=== PATIENT | female | born 1960 | race Caucasian/White ===

== ENCOUNTER 2018-05-13 20:17 | Emergency (ER) | payer OTHER, SELFPAY ==
[2018-05-13 20:19] VITALS: BP 147/100; PULSE 102; RESP 18; TEMP 36.7; O2SAT 94; BMI 34.7
--- NOTE | 2018-05-13 20:35 | ED.NAVMDI ---
HPI - Nausea/Vomiting/Diarrhea <NELI Yun Last Filed: 05/13/18 22:31> General Chief complaint: Nausea/Vomiting/Diarrhea Stated complaint: VOMITING Time Seen by Provider: 05/13/18 20:34 Source: patient Mode of arrival: ambulatory Limitations: no limitations History of Present Illness HPI Narrative: this 57-year-old female comes in due to pressure and burning sensation low in her throat and somewhat in her upper chest. She states that this started while she was eating ribs and stuffing this evening, and she had sudden onset of pressure and liquid in her throat. She states that she has had this periodically over the last 2 years, always comes on when she is eating. She has not been able to determine whether certain foods seem to cause it. She states that usually the pressure builds up and she will be able to start belching and relieve it. She occasionally has had worse pressure and start to get nauseous and vomit. She states that she was unable to keep belching as usual and had that same sensation. She vomited once and states the intense burning sensation is better, still has some pressure but states largely resolved and probably would not have come in without she feels now. She states that she does not feel short of breath. She does not feel like she aspirated and has not been coughing. She does not feel nauseated any longer. She does not have abdominal pain and has not had any bowel habit changes or fever today. She states that she does get heartburn and typically uses Tums a couple of times weekly, sometimes takes it for this as well. She has never had any exertional symptoms or discomfort at times other than in the setting of eating. She states that she had upper GI a couple of years ago for these symptoms which was normal, also had normal cardiac workup. Related Data Allergies Allergy/AdvReac Type Severity Reaction Status Date / Time tramadol Allergy Verified 05/13/18 21:42 Review of Systems <NELI Yun Last Filed: 05/13/18 22:31> Review of Systems All systems reviewed & are unremarkable except as noted in HPI and below PFSH <NELI Yun Last Filed: 05/13/18 22:31> Comment: occ ETOH Exam <NELI Yun Last Filed: 05/13/18 22:31> Narrative Exam Narrative: GENERAL APPEARANCE: Patient sitting comfortably, in no distress. HEENT: PERRL, EOMI, no scleral icterus, normal oropharynx NECK: Supple, no masses, trachea midline with normal swallow LUNGS: Clear to auscultation bilaterally. CHEST: No tenderness to palpation HEART: Rate and rhythm regular, normal S1 and S2, no S3 or S4. ABDOMEN: Soft, nontender, nondistended, bowel sounds present x 4 quadrants EXTREMITIES: No edema DERMATOLOGIC: No jaundice or exanthem NEUROLOGIC: Alert and oriented with normal speech and coordination Initial Vital Signs Initial Vital Signs: Vital Signs Temperature 98.1 F 05/13/18 20:19 Pulse Rate 102 H 05/13/18 20:19 Respiratory Rate 18 05/13/18 20:19 Blood Pressure 147/100 H 05/13/18 20:19 Pulse Oximetry 94 05/13/18 20:19 <Nirav Harding DO - Last Filed: 05/13/18 23:15> Initial Vital Signs Initial Vital Signs: Vital Signs Temperature 98.1 F 05/13/18 20:19 Pulse Rate 102 H 05/13/18 20:19 Respiratory Rate 18 05/13/18 20:19 Blood Pressure 147/100 H 05/13/18 20:19 Pulse Oximetry 94 05/13/18 20:19 Course <Aurora Medina PA-C - Last Filed: 05/13/18 22:31> Additional Information: Patient had some recurrent vomiting after trying to swallow medications. She was given a dose of SL Zofran with improvement, then given GI cocktail again which helped briefly, but was still experiencing some discomfort and pressure especially when supine. IV Protonix and sucralfate given. She states that she is starting to feel better and is lying down comfortably. we are going to monitor patient to determine whether continued improvement or any further workup needed. Patient signed out to Dr. Harding at 2225 Orders Ordered: ED Orders 05/13/18 20:48 EKG-12 Lead Stat Discontinued Medications Al Hydrox/Mg Hydrox/Simethicone 20 ml/ Lidocaine HCl 15 ml 0 ml PO NOW ONE Stop: 05/13/18 20:49 Last Admin: 05/13/18 20:54 Dose: 35 ml Sodium Chloride (Normal Saline 0.9%) 500 mls @ 1,000 mls/hr IV BOLUS STA Stop: 05/13/18 22:13 Last Admin: 05/13/18 22:04 Dose: 1,000 mls/hr Ondansetron HCl (Zofran Odt) 4 mg PO NOW ONE Stop: 05/13/18 21:02 Last Admin: 05/13/18 21:02 Dose: 4 mg Pantoprazole Sodium (Protonix) 40 mg IV NOW ONE Stop: 05/13/18 21:45 Last Admin: 05/13/18 22:04 Dose: 40 mg Ranitidine HCl (Zantac) 300 mg PO NOW ONE Stop: 05/13/18 20:49 Last Admin: 05/13/18 20:52 Dose: 300 mg Sucralfate (Carafate) 1 gm PO NOW ONE Stop: 05/14/18 21:46 Sucralfate (Carafate) 1 gm PO NOW ONE Stop: 05/14/18 22:02 Sucralfate (Carafate) 1 gm PO NOW ONE Stop: 05/13/18 22:02 Last Admin: 05/13/18 22:07 Dose: 1 gm Vital Signs - 8 hr 05/13/18 20:19 Temperature 98.1 F Pulse Rate 102 H Respiratory Rate 18 Blood Pressure 147/100 H Pulse Oximetry 94 <Nirav Harding DO - Last Filed: 05/13/18 23:15> Orders Ordered: ED Orders 05/13/18 20:48 EKG-12 Lead Stat Discontinued Medications Al Hydrox/Mg Hydrox/Simethicone 20 ml/ Lidocaine HCl 15 ml 0 ml PO NOW ONE Stop: 05/13/18 20:49 Last Admin: 05/13/18 20:54 Dose: 35 ml Sodium Chloride (Normal Saline 0.9%) 500 mls @ 1,000 mls/hr IV BOLUS STA Stop: 05/13/18 22:13 Last Admin: 05/13/18 22:04 Dose: 1,000 mls/hr Ondansetron HCl (Zofran Odt) 4 mg PO NOW ONE Stop: 05/13/18 21:02 Last Admin: 05/13/18 21:02 Dose: 4 mg Pantoprazole Sodium (Protonix) 40 mg IV NOW ONE Stop: 05/13/18 21:45 Last Admin: 05/13/18 22:04 Dose: 40 mg Ranitidine HCl (Zantac) 300 mg PO NOW ONE Stop: 05/13/18 20:49 Last Admin: 05/13/18 20:52 Dose: 300 mg Sucralfate (Carafate) 1 gm PO NOW ONE Stop: 05/14/18 21:46 Sucralfate (Carafate) 1 gm PO NOW ONE Stop: 05/14/18 22:02 Sucralfate (Carafate) 1 gm PO NOW ONE Stop: 05/13/18 22:02 Last Admin: 05/13/18 22:07 Dose: 1 gm Vital Signs - 8 hr 05/13/18 20:19 Temperature 98.1 F Pulse Rate 102 H Respiratory Rate 18 Blood Pressure 147/100 H Pulse Oximetry 94 MDM - Nausea/Vomiting/Diarrhea <NELI Yun Last Filed: 05/13/18 22:31> ECG Data Attestation: I personally reviewed and interpreted this ECG as follows: ( normal sinus rhythm with rate 82, 1st degree AV block, normal axis) ED Cosign/Signout <Aurora Medina PA-C - Last Filed: 05/13/18 22:31> Sign Out Provider Sign Out Attestation: See Course section. findings reviewed with Dr. Harding including patient's history of multiple episodes of the symptoms always in the setting of eating, though more persistent this evening. She is feeling better after Protonix and Carafate. He will reassess patient and determine whether any further w/u needed <Nirav Harding DO - Last Filed: 05/13/18 23:15> Cosign ED Attending Cosignature Attestation: I was available for consultation during this patient's emergency department encounter
[2018-05-13] MEDS: MAG HYDROX/ALUMINUM/SIMETH SUS 20 ML, LIDOCAINE VISCOUS 2% 15 ML PO (20:54)
[2018-05-13] MEDS: ONDANSETRON 4 MG ODT PO (21:02)
--- NOTE | 2018-05-13 21:03 | PC.NURSE ---
upon administration of GI cocktail, pt vomited clear liquid. Pt states she is still feeling a little nauseous. administered Zofran per order.
--- NOTE | 2018-05-13 21:29 | PC.NURSE ---
Reassessed pt, She is feeling better no longer nauseas. Per Provider pt finished her GI cocktail. Pt denies nausea. Will give her a few minutes to see if cocktail helps pain.
--- NOTE | 2018-05-13 21:37 | PC.NURSE ---
reassessed Pt after GI cocktail. pt states it numbed the burning slightly but she is still burping. She thinks it did help her a little, just didn't last long. Provider notified. No new orders at this time.
[2018-05-13] MEDS: SODIUM CHLORIDE 0.9% 500 ML 1000 ML IV (22:04)
[2018-05-13] MEDS: PANTOPRAZOLE 40 MG VIAL IV (22:04)
[2018-05-13] MEDS: SUCRALFATE 1 GM TABLET PO (22:07)
[2018-05-13 23:40] VITALS: BP 112/94; PULSE 82; O2SAT 98
== END 2018-05-13 23:41 | disposition home or self-care (01) ==
PROVIDERS: Emergency Provider Emergency Medicine; Family Provider Family Medicine; PCP Family Medicine
DX: K22.4 Dyskinesia of esophagus (principal); R07.89 Other chest pain
CPT/HCPCS: 93005; 93010; 96361; 96374; 99283; 99284; C9113

== ENCOUNTER → 2018-11-03 16:30 | Outpatient (CLI) | payer OTHER, SELFPAY ==
--- NOTE | 2018-11-03 | DI.MG.S_ITS ---
BILATERAL DIGITAL SCREENING MAMMOGRAM 3D/2D WITH CAD: 11/03/2018 CLINICAL: Routine screening. Family history of breast cancer. Comparison is made to exams dated: 10/03/2017 mammogram, 09/09/2016 mammogram - [facility], and 07/14/2014 mammogram - [facility]. The tissue of both breasts is heterogeneously dense. This may lower the sensitivity of mammography. Current study was also evaluated with a Computer Aided Detection (CAD) system. There is a benign mass in the right breast. There also are benign calcifications in the right breast. Additionally, there are benign calcifications and masses in the left breast. No significant masses, calcifications, or other findings are seen in either breast. There has been no significant interval change. IMPRESSION: There is no mammographic evidence of malignancy. A 1 year screening mammogram is recommended. This exam was interpreted at Station ID: [id number]. NOTE: For mammograms, a report in lay terms will be sent to the patient. Approximately 15% of breast malignancies will not be visualized mammographically. In the management of a palpable breast mass, a negative mammogram must not discourage biopsy of a clinically suspicious lesion. Electronically Signed By: Ger zarate/jeanna:11/04/2018 09:34:21 copy to: Barbara Wiggins letter sent: Normal Exam ACR BI-RADS Category 2: Benign Finding(s) 3342F
== END ==
PROVIDERS: Family Provider Family Medicine; PCP Family Medicine; Visit Provider Family Medicine
DX: Z12.31 Encounter for screening mammogram for malignant neoplasm of breast (principal); Z80.3 Family history of malignant neoplasm of breast
CPT/HCPCS: 77063; 77067

== ENCOUNTER 2024-02-21 20:11 | Emergency (ER) | payer OTHER, SELFPAY ==
[2024-02-21 20:17] VITALS: BP 157/88; PULSE 98; RESP 18; TEMP 36.6; O2SAT 97; BMI 33.9
[2024-02-21 20:50] LABS: Add Manual Diff / Slide Review NO; Basophils Absolute Auto 100 /uL (0-100); Basophils Percent Auto 0.5 % (0-2); Eosinophils Absolute Auto 200 /uL (0-450); Eosinophils Percent Auto 1.6 % (2-4); Hematocrit 41.9 % (36-46); Lymphocytes Absolute Auto 2200 /uL (1100-4500); Lymphocytes Percent Auto 17.7 % (25-40); Mean Corpuscular HGB Conc 33.5 % (30-36); Mean Corpuscular Hemoglobin 30.3 PG (26-34); Mean Corpuscular Volume 90.6 fL (80-100); Monocytes Absolute Auto 700 /uL (0-900); Monocytes Percent Auto 5.5 % (3-14); Neutrophils Absolute Auto 9400 /uL (1500-7000); Neutrophils Percent Auto 74.7 % (50-75); Platelet Count 334 X10^3/uL (150-400); Red Blood Cell Count 4.63 X10^6/uL (4.0-5.2); Red Cell Distribution Width 13.3 % (11.6-14.8); White Blood Cell Count 12.6 X10^3/uL (4.5-11.0)
--- NOTE | 2024-02-21 20:50 | EKG_ITS ---
[address] [address] [address] [address] Test Date: 2024-02-21 Pat Name: Xiomy Dixon Department: Room: Gender: Female Eviction Specialist: LOKI : 1960 Requested By: Order Number: [id number] Reading MD: Gilbert Roman Measurements Intervals [place] Rate: 99 P: 54 [place]: 200 QRS: 9 QRSD: 92 T: 61 QT: 346 QTc: 444 Interpretive Statements Normal sinus rhythm Electronically Signed On 02-25-2024 19:46:55 PDT by Gilbert Roman
--- NOTE | 2024-02-21 20:51 | PC.NURSE ---
pt states it feels like the pain starts in the mid back and wraps around the front just under the lower rib cage it is described as a squeezing like a muscle spasm, the previous episode was shorter than this episode, pain increased when pt attempted to lay down, pain has now resolved, SOB occurs when the pain does and is because it hurts when she tries to inhale. pt recently had a CT that had something regarding the GB but pt does not remember what
--- NOTE | 2024-02-21 20:55 | ED.GENADULT ---
HPI - General Adult General Chief complaint: Shortness of Breath/Dyspnea Stated complaint: Back Pain, Cramps, SoB Time Seen by Provider: 02/21/24 20:38 Source: patient Mode of arrival: Ambulatory History of Present Illness HPI narrative: 63-year-old female who is here for evaluation an episode that occurred earlier today where she had pain in the middle of her back. She felt like he was cramping sensation. It was hurting so much that it caused her to have shortness of breath. Pain also in the upper portion of the abdomen. It was after she ate today. It occurred for several hours and then resolved. She was currently asymptomatic. She would similar symptoms that occurred a couple days ago. Denies urinary symptoms. No change in bowel habits. So vomiting. No fevers. No chest pain. Related Data Previous Rx's Medication Instructions Recorded ranitidine HCl 150 mg capsule 150 mg PO BID #60 caps 05/13/18 sucralfate 100 mg/mL oral 10 ml PO QID #420 mL 05/13/18 suspension Allergies Allergy/AdvReac Type Severity Reaction Status Date / Time tramadol Allergy Verified 05/13/18 21:42 Review of Systems Review of Systems ROS Unobtainable: All systems reviewed & are unremarkable except as noted in HPI and below Patient History Medical History Loose stools Chronic neck and back pain History of spinal fracture Mild acid reflux Social History Smoking Status: Former smoker Smoking Status: Former smoker alcohol intake frequency: holidays/special occasions only Substance Use Type: does not use Exam Initial Vital Signs Initial Vital Signs: Vital Signs Temperature 97.8 F 02/21/24 20:17 Pulse Rate 98 H 02/21/24 20:17 Respiratory Rate 18 02/21/24 20:17 Blood Pressure 157/88 H 02/21/24 20:17 Pulse Oximetry 97 02/21/24 20:17 Oxygen Delivery Method Room Air 02/21/24 20:17 Const General: cooperative, comfortable and No ill appearing HENMT Head: normal to inspection and normocephalic Resp Effort & Inspection: normal respiratory effort Auscultation: clear to auscultation bilaterally Cardio Rate: regular rate Rhythm: regular rhythm GI Inspection: normal to inspection and non-distended Palpation: soft, No firm and No tender Back/Spine/Pelvis Back: No CVA tenderness Skin General: no rashes or lesions noted Neuro General: patient alert, patient awake and moves all extremities Extrem General: capillary refill normal Course Orders Ordered: ED Orders 02/21/24 20:38 Complete Blood Count AUTO DIFF Stat Comprehensive Metabolic Panel Stat Lipase Stat 02/21/24 20:44 EKG-12 Lead Stat Vital Signs Vital signs: Vital Signs - 8 hr 02/21/24 20:17 02/21/24 22:04 Temperature 97.8 F Pulse Rate 98 H 84 Respiratory Rate 18 18 Blood Pressure 157/88 H 146/80 H Pulse Oximetry 97 98 Oxygen Delivery Method Room Air Room Air Medical Decision Making Lab Data Lab results reviewed: Yes I reviewed the patient's lab results. 02/21/24 20:38 02/21/24 20:38 Labs: Lab Results 02/21/24 Range/Units 20:38 WBC 12.6 H (4.5-11.0) X10^3/uL RBC 4.63 (4.0-5.2) X10^6/uL Hgb 14.0 (12.0-16.0) g/dL Hct 41.9 (36-46) % MCV 90.6 (80-100) fL MCH 30.3 (26-34) PG MCHC 33.5 (30-36) % RDW 13.3 (11.6-14.8) % Plt Count 334 (150-400) X10^3/uL Neut % (Auto) 74.7 (50-75) % Lymph % (Auto) 17.7 L (25-40) % [place] % (Auto) 5.5 (3-14) % Eos % (Auto) 1.6 L (2-4) % Baso % (Auto) 0.5 (0-2) % Neut # (Auto) 9400 H (6568-7218) /uL Lymph # (Auto) 2200 (8977-1174) /uL [place] # (Auto) 700 (0-900) /uL Eos # (Auto) 200 (0-450) /uL Baso # (Auto) 100 (0-100) /uL Sodium 137 (137-145) mmol/L Potassium 4.3 (3.4-5.1) mmol/L Chloride 103 (98-107) mmol/L Carbon Dioxide 27 (22-32) mmol/L BUN 24 H (7-17) mg/dL Creatinine 0.66 (0.52-1.04) mg/dL Estimated GFR > 60 (>60) mL/min BUN/Creatinine Ratio 36.4 H (6-22) Glucose 107 (80-110) mg/dL Calcium 9.2 (8.4-10.2) mg/dL Total Bilirubin 0.7 (0.2-1.3) mg/dL AST 72 H (14-36) IU/L ALT 31 (<35) IU/L Alkaline Phosphatase 112 (38-126) U/L Total Protein 7.8 (6.3-8.2) g/dL Albumin 4.1 (3.5-5.0) g/dL Globulin 3.7 (1.7-4.1) g/dL Albumin/Globulin Ratio 1.1 (1.0-2.8) Lipase 162 (23-300) U/L ECG Data Attestation: I personally reviewed and interpreted this ECG as follows: Interpretation: Sinus rhythm Ventricular rate 99 Normal axis Normal QRS Normal QTC No ST T wave changes MDM Narrative Medical decision making narrative: Patient is now asymptomatic. Lipase is normal. EKG is unremarkable. Slight elevation in her AST but the rest of her liver function tests are unremarkable. No skin changes concerning for zoster. I have low suspicion that this is a intrathoracic issue such as pneumonia or ACS. I have a suspicion that this is a gallbladder related issue given her presenting symptoms. She was a follow-up appointment with her primary doctor scheduled for Thursday of this week and have recommended that she talk with her primary doctor about the indications for an ultrasound. She was given return precautions. She expressed understanding and agreement with plan. Discharge Plan Departure Patient Disposition: Home Clinical Impression: Abdominal pain Instructions: Gallstones, DI for Biliary Colic Activity Restrictions/Additional Instructions: I recommend that on Thursday when you see your primary doctor you discuss the indications for an ultrasound to further evaluate your gallbladder. I also recommend a bland diet avoiding foods that are high in fats and oils. Return to the emergency department for new or worsening symptoms. Prescriptions: No Action sucralfate 100 mg/mL suspension 10 ml PO QID Qty: 420 0RF Rx Instructions: swish in mouth and swallow; use after food/drink ranitidine HCl 150 mg capsule 150 mg PO BID Qty: 60 0RF Referrals: Nathaniel Garcia DO [Primary Care Provider] - Stand Alone Forms: Patient Portal/API
[2024-02-21 20:59] LABS: Alanine Aminotransferase 31 IU/L (<35); Albumin 4.1 g/dL (3.5-5.0); Albumin Globulin Ratio 1.1 (1.0-2.8); Alkaline Phosphatase 112 U/L (38-126); Aspartate Aminotransferase 72 IU/L (14-36); BUN Creatinine Ratio 36.4 (6-22); Bilirubin Total 0.7 mg/dL (0.2-1.3); Blood Urea Nitrogen 24 mg/dL (7-17); Calcium 9.2 mg/dL (8.4-10.2); Carbon Dioxide 27 mmol/L (22-32); Chloride 103 mmol/L (98-107); Estimated Glomerular Filt Rate > 60 mL/min (>60); Globulin 3.7 g/dL (1.7-4.1); Glucose 107 mg/dL (80-110); Potassium 4.3 mmol/L (3.4-5.1); Sodium 137 mmol/L (137-145); Total Protein 7.8 g/dL (6.3-8.2)
[2024-02-21 21:00] LABS: HEMOLYSIS 97 (0-50)
[2024-02-21 21:18] LABS: Lipase 162 U/L (23-300)
[2024-02-21 22:04] VITALS: BP 146/80; PULSE 84; RESP 18; O2SAT 98
== END 2024-02-21 22:04 | disposition home or self-care (01) ==
PROVIDERS: Emergency Provider Emergency Medicine; Family Provider Family Medicine; PCP Family Medicine
DX: R10.9 Unspecified abdominal pain (principal); R06.02 Shortness of breath
CPT/HCPCS: 36415; 80053; 83690; 85025; 93005; 99283; 99284

== ENCOUNTER 2024-03-15 10:48 | Emergency (ER) | payer OTHER, SELFPAY ==
[2024-03-15] VITALS (9 sets, daily range): BP systolic 119–135; BP diastolic 75–89; PULSE 83–98; RESP 15–29; TEMP 37.1; O2SAT 93–97; BMI 32.3
--- NOTE | 2024-03-15 11:25 | EKG_ITS ---
[facility] [address] [address] Test Date: 2024-03-15 Pat Name: Xiomy Dixon Department: [facility] Room: Gender: Female Glass Bead Maker: ANGELLA : 1960 Requested By: Order Number: [id number] Reading MD: Erlin Petit MD Measurements Intervals [place] Rate: 87 P: 58 [place]: 208 QRS: 10 QRSD: 92 T: 39 QT: 352 QTc: 423 Interpretive Statements Normal sinus rhythm Electronically Signed On 03-15-2024 12:05:42 PDT by Erlin Petit MD
--- NOTE | 2024-03-15 11:25 | DI.CT.S_ITS ---
PROCEDURE: CT HEAD/BRAIN WO CON INDICATIONS: Positive BE-FAST, Stroke symptoms TECHNIQUE: Noncontrast 4.5 mm thick angled axial sections acquired from the foramen magnum to the vertex, with coronal and sagittal reformats. For radiation dose reduction, the following was used: automated exposure control, adjustment of mA and/or kV according to patient size. COMPARISON: None. FINDINGS: Image quality: Diagnostic. CSF spaces: Basal cisterns are patent. No extra-axial fluid collections. Ventricles are normal in size and shape. Brain: No midline shift. No intracranial masses or hemorrhage. Garcia-white matter interface is normal. Skull and face: Calvarium and visualized facial bones are intact, without suspicious lesions. Sinuses: Visualized sinuses and mastoids are clear. IMPRESSION: No acute intracranial pathology. Dictated by: Zainab Gutierrez MD, PhD on 03/15/2024 at 12:17 Approved by: Zainab Gutierrez MD, PhD on 03/15/2024 at 12:19
--- NOTE | 2024-03-15 11:25 | DI.RAD.S_ITS ---
PROCEDURE: XR CHEST 1V INDICATIONS: Possible stroke TECHNIQUE: One view of the chest was acquired. COMPARISON: None. FINDINGS: Surgical changes and devices: None. Lungs and pleura: Lungs are clear. No pleural effusions or pneumothorax. Mediastinum: Mediastinal contours appear normal. Heart size is normal. Bones and chest wall: No suspicious bony lesions. Overlying soft tissues appear unremarkable. IMPRESSION: No acute pulmonary process. Dictated by: Tamara Simeon M.D. on 03/15/2024 at 11:48 Approved by: Tamara Simeon M.D. on 03/15/2024 at 11:49
--- NOTE | 2024-03-15 11:28 | DI.CT.S_ITS ---
PROCEDURE: CT ANGIO HEAD AND NECK INDICATIONS: r/o stroke, vision changes x one week, worse in the last TECHNIQUE: After the administration of intravenous contrast, 1 mm thick sections acquired from the aortic arch through the [place] of [place]. 3-dimensional bopcsdb-uyvilyfrf-eomyjtgdov (MIP) and/or volume rendering reformats were acquired of the central intracranial vasculature and neck separately. For radiation dose reduction, the following was used: automated exposure control, adjustment of mA and/or kV according to patient size. COMPARISON: Located Within [facility], CT, CT HEAD/BRAIN WO CON, 03/15/2024, 11:45. CT head March 15, 2024. . FINDINGS: Image quality: Diagnostic. . HEAD CT ANGIOGRAPHY: Anterior circulation: Intracranial internal carotid arteries are normal in size and flow. The flow within the paired anterior cerebral arteries is normal and symmetric. The flow within the middle cerebral arteries is normal and symmetric. The anterior communicating artery is seen. No aneurysms are seen. Posterior circulation: Visualized portions of the vertebral arteries demonstrate normal caliber, and join to form a normal appearing basilar artery. Flow within the posterior cerebral arteries is normal and symmetric. Left posterior cerebral artery has a origin. No aneurysms are seen. NECK CT ANGIOGRAPHY: Carotid system: The great vessels demonstrate a conventional anatomy as they arise from the aortic arch. The origins of the common carotid arteries appear patent. The common carotid arteries demonstrate normal caliber and courses. The bifurcation regions are both widely patent. The internal carotid arteries demonstrate normal calibers and courses. Posterior circulation: The origins of the vertebral arteries both appear widely patent. The more superior extracranial portions of both vertebral arteries also demonstrate normal courses and calibers. They join to form a normal appearing basilar artery. Soft tissues: Visualized neck soft tissues demonstrate no suspicious abnormalities. Thyroid nodules with largest nodule in the right lobe measuring 2.0 centimeters in maximum diameter. Bones: No suspicious bony lesions. Visualized cervical spine appears normally aligned. Spine degenerative disc disease and facet arthropathy. IMPRESSION: No large vessel occlusion, significant vascular stenosis, vascular dissection or aneurysm. 2.0 centimeter right thyroid nodule. Recommend nonemergent thyroid ultrasound for additional evaluation. Any quantitative measurements of stenosis were performed using NASCET criteria. Dictated by: Zainab Gutierrez MD, PhD on 03/15/2024 at 12:07 Approved by: Zainab Gutierrez MD, PhD on 03/15/2024 at 12:13
[2024-03-15 11:40] LABS: Ur Creatinine Normal (Normal); Ur Specific Gravity Normal (Normal); Urine pH Normal (Normal)
[2024-03-15 11:43] LABS: Urine Cocaine Negative (Negative); Urine THC Negative (Negative)
[2024-03-15 11:44] LABS: Urine Amphetamines Negative (Negative); Urine Barbiturates Negative (Negative); Urine Benzodiazepines Negative (Negative); Urine MDMA Negative (Negative); Urine Methadone Negative (Negative); Urine Methamphetamines Negative (Negative); Urine Opiates Negative (Negative); Urine Oxycodone Negative (Negative); Urine Phencyclidine Negative (Negative); Urine Tricyclic Antidepressant Negative (Negative)
[2024-03-15 11:57] LABS: Add Manual Diff / Slide Review NO; Basophils Absolute Auto 0 /uL (0-100); Basophils Percent Auto 0.5 % (0-2); Eosinophils Absolute Auto 100 /uL (0-450); Eosinophils Percent Auto 1.2 % (2-4); Hemoglobin 13.3 g/dL (12.0-16.0); Lymphocytes Absolute Auto 2000 /uL (1100-4500); Lymphocytes Percent Auto 21.4 % (25-40); Mean Corpuscular Hemoglobin 30.4 PG (26-34); Mean Corpuscular Volume 89.4 fL (80-100); Monocytes Absolute Auto 800 /uL (0-900); Monocytes Percent Auto 8.2 % (3-14); Neutrophils Absolute Auto 6400 /uL (1500-7000); Neutrophils Percent Auto 68.7 % (50-75); Platelet Count 360 X10^3/uL (150-400); Red Blood Cell Count 4.36 X10^6/uL (4.0-5.2); Red Cell Distribution Width 13.9 % (11.6-14.8); White Blood Cell Count 9.4 X10^3/uL (4.5-11.0)
--- NOTE | 2024-03-15 12:02 | ED_ITS ---
HPI - Eye Problem General Chief complaint: Eye Problems Stated complaint: vision problems Time Seen by Provider: 03/15/24 12:01 Source: patient Mode of arrival: Family Vehicle History of Present Illness HPI Narrative: 63-year-old female with visual changes over the last few days intermittent, noticeable when she is reading, also had a work computer like screen, wearing the same prescription glasses, recent new glasses, does not feel that she is overdue for a new prescription. No associated headaches. Associated visual spots or areas that she can not see on the right or the left. Unclear if it seems to be worse on 1 eye versus the other eye, versus both eyes. No other symptoms neurologic, denies any weakness to face arm or leg, denies any numbness to face arm or leg. No trouble swallowing. Denies unsteady gait, falls or sensation that she might fall. No history of known prior strokes. No chronic blood thinner medications. She has not usually take aspirin. Related Data Previous Rx's Medication Instructions Recorded ranitidine HCl 150 mg capsule 150 mg PO BID #60 caps 05/13/18 sucralfate 100 mg/mL oral 10 ml PO QID #420 mL 05/13/18 suspension Allergies Allergy/AdvReac Type Severity Reaction Status Date / Time tramadol Allergy Verified 03/15/24 11:17 Review of Systems Review of Systems Narrative: see HPI Patient History Medical History Loose stools Chronic neck and back pain History of spinal fracture Mild acid reflux Social History Smoking Status: Former smoker Smoking Status: Former smoker tobacco type: cigarettes alcohol intake frequency: holidays/special occasions only Substance Use Type: does not use Exam Narrative Exam Narrative: GENERAL: Well-developed patient, in mild distress. HEAD: Atraumatic. Normocephalic. EYES: Pupils equal round and reactive. Extraocular motions intact. No scleral icterus. No injection or drainage. ENT: Nose without bleeding, purulent drainage. Throat without erythema, tonsillar hypertrophy or exudate. Airway patent. NECK: Trachea midline. Non tender CARDIOVASCULAR: Regular rate and rhythm without murmurs, gallops, or rubs. RESPIRATORY: Clear to auscultation. Breath sounds equal bilaterally. No wheezes, rales, or rhonchi. GASTROINTESTINAL: Abdomen soft, non-tender, nondistended. EXTREMITIES: No edema or joint tenderness. BACK: Nontender without deformity or crepitance. No flank tenderness. NEURO: AOx3. Motor functions grossly nonfocal. No diplopia on upper/lower or lateral right/left gaze testing. SKIN: No rash or erythema of visible areas Initial Vital Signs Initial Vital Signs: Vital Signs Temperature 98.7 F 03/15/24 11:10 Pulse Rate 98 H 03/15/24 11:10 Respiratory Rate 18 03/15/24 11:10 Blood Pressure 124/86 03/15/24 11:10 Pulse Oximetry 97 03/15/24 11:10 Oxygen Delivery Method Room Air 03/15/24 11:10 Course Orders Ordered: ED Orders 03/15/24 11:22 Urine Drug Screen, Rapid Stat Urine Microscopic Stat 03/15/24 11:25 CT head/brain wo con Stat XR chest 1V Stat EKG-12 Lead Stat 03/15/24 11:28 CT angio head and neck Stat 03/15/24 11:38 Complete Blood Count AUTO DIFF Stat Comprehensive Metabolic Panel Stat Magnesium Stat PTT Partial Thromboplastin [place] Stat Prothrombin Time INR Stat Troponin & CK Cardiac Panel Stat 03/15/24 12:43 MR head/brain wo con Stat 03/15/24 13:28 Troponin I Stat Discontinued Medications Ondansetron HCl (Ondansetron 4 Mg/2 Ml Inj) 4 mg IV NOW PRN PRN Reason: Nausea And Vomiting Ondansetron HCl (Ondansetron 4 Mg Odt) 4 mg SL NOW PRN PRN Reason: Nausea And Vomiting Vital Signs Vital signs: Vital Signs - 8 hr 03/15/24 12:30 03/15/24 12:31 03/15/24 12:31 Pulse Rate 85 86 Respiratory Rate 21 20 Blood Pressure 119/83 Pulse Oximetry 93 95 03/15/24 13:00 03/15/24 13:00 Pulse Rate 86 Respiratory Rate 22 Blood Pressure 135/89 Pulse Oximetry 95 MDM - Eye Problem Lab Data Attestation: I reviewed the patient's lab results. Lab results narrative: CBC unremarkable, BMP unremarkable, liver functions normal, UDS negative. Glucose serum 92. Urine dip negative. 03/15/24 11:38 03/15/24 11:38 Labs: Lab Results 03/15/24 03/15/24 03/15/24 Range/Units 11:22 11:38 13:28 WBC 9.4 (4.5-11.0) X10^3/uL RBC 4.36 (4.0-5.2) X10^6/uL Hgb 13.3 (12.0-16.0) g/dL Hct 39.0 (36-46) % MCV 89.4 (80-100) fL MCH 30.4 (26-34) PG MCHC 34.0 (30-36) % RDW 13.9 (11.6-14.8) % Plt Count 360 (150-400) X10^3/uL Neut % (Auto) 68.7 (50-75) % Lymph % (Auto) 21.4 L (25-40) % [place]christ % (Auto) 8.2 (3-14) % Eos % (Auto) 1.2 L (2-4) % Baso % (Auto) 0.5 (0-2) % Neut # (Auto) 6400 (1412-1091) /uL Lymph # (Auto) 2000 (6960-1873) /uL [place] # (Auto) 800 (0-900) /uL Eos # (Auto) 100 (0-450) /uL Baso # (Auto) 0 (0-100) /uL PT 13.2 H (9.4-12.5) SECONDS INR 1.2 (0.9-1.3) APTT 34 (25.1-36.5) SECONDS Sodium 135 L (137-145) mmol/L Potassium 3.7 (3.4-5.1) mmol/L Chloride 103 (98-107) mmol/L Carbon Dioxide 23 (22-32) mmol/L BUN 22 H (7-17) mg/dL Creatinine 0.79 (0.52-1.04) mg/dL Estimated GFR > 60 (>60) mL/min BUN/Creatinine Ratio 27.8 H (6-22) Glucose 92 (80-110) mg/dL Calcium 9.0 (8.4-10.2) mg/dL Magnesium 2.0 (1.6-2.3) mg/dL Total Bilirubin 0.7 (0.2-1.3) mg/dL AST 71 H (14-36) IU/L ALT 208 H (<35) IU/L Alkaline Phosphatase 114 (38-126) U/L Total Creatine Kinase 45 (30-135) U/L Troponin I < 0.012 < 0.012 (0.01-0.034) ng/mL Total Protein 7.0 (6.3-8.2) g/dL Albumin 3.8 (3.5-5.0) g/dL Globulin 3.2 (1.7-4.1) g/dL Albumin/Globulin Ratio 1.2 (1.0-2.8) Urine RBC None seen (0-5/HPF) Urine WBC 0-1/hpf (0-5/HPF) Ur Squamous Epith Cells None seen (0-5/HPF) Urine Bacteria None seen (None) Ur Culture Indicated? Cult not indicated Vol Urine Centrifuged 10ml (spun) U Opiates 300ng/mL cut Negative (Negative) Ur Oxycodone Screen Negative (Negative) Urine Methadone Screen Negative (Negative) Ur Barbiturates Screen Negative (Negative) U Tricyclic Antidepress Negative (Negative) Ur Phencyclidine Scrn Negative (Negative) Ur Amphetamines Screen Negative (Negative) U Methamphetamines Scrn Negative (Negative) Ur MDMA Scrn (Ecstasy) Negative (Negative) U Benzodiazepines Scrn Negative (Negative) Urine Cocaine Screen Negative (Negative) U Marijuana (THC) Screen Negative (Negative) Urine pH Normal (Normal) Urine Specific [place] Normal (Normal) Ur Creatinine Normal (Normal) Urine Dip Bedside Urine Glucose Negative Bedside Urine Bilirubin - Negative Bedside Urine Ketone ++ 40 Urine Specific [place] 1.015 Bedside Urine Occult Blood - Negative Bedside Urine pH 6.0 Bedside Urine Protein +/- 15 Bedside Urine Urobilinogen - Negative Bedside Urine Nitrite - Negative Bedside Urine Leukocytes - Negative Esterase Imaging Data Chest x-ray: Radiologist's Impression: [address] [address] XRay Report Signed Patient: Xiomy Dixon MR#: [id number] : 1960 Acct:[id number] Age/Sex: 63 / F Date of Service: 03/15/24 Loc: ED Accession Number: [id number] Procedure: XR chest 1V Ordering Provider: Justice Mehta MD PROCEDURE: XR CHEST 1V INDICATIONS: Possible stroke TECHNIQUE: One view of the chest was acquired. COMPARISON: None. FINDINGS: Surgical changes and devices: None. Lungs and pleura: Lungs are clear. No pleural effusions or pneumothorax. Mediastinum: Mediastinal contours appear normal. Heart size is normal. Bones and chest wall: No suspicious bony lesions. Overlying soft tissues appear unremarkable. IMPRESSION: No acute pulmonary process. Dictated by: Tamara Simeon M.D. on 03/15/2024 at 11:48 Approved by: Tamara Simeon M.D. on 03/15/2024 at 11:49 CT scan - head: Radiologist's Impression: [address] [address] [address] Scan Report Signed Patient: Xiomy Dixon MR#: [id number] : 1960 Acct:[id number] Age/Sex: 63 / F Date of Service: 03/15/24 Loc: ED Accession Number: [id number] Procedure: CT head/brain wo con Ordering Provider: Justice Mehta MD PROCEDURE: CT HEAD/BRAIN WO CON INDICATIONS: Positive BE-FAST, Stroke symptoms TECHNIQUE: Noncontrast 4.5 mm thick angled axial sections acquired from the foramen magnum to the vertex, with coronal and sagittal reformats. For radiation dose reduction, the following was used: automated exposure control, adjustment of mA and/or kV according to patient size. COMPARISON: None. FINDINGS: Image quality: Diagnostic. CSF spaces: Basal cisterns are patent. No extra-axial fluid collections. Ventricles are normal in size and shape. Brain: No midline shift. No intracranial masses or hemorrhage. Garcia-white matter interface is normal. Skull and face: Calvarium and visualized facial bones are intact, without suspicious lesions. Sinuses: Visualized sinuses and mastoids are clear. IMPRESSION: No acute intracranial pathology. Dictated by: Zainab Gutierrez MD, PhD on 03/15/2024 at 12:17 Approved by: Zainab Gutierrez MD, PhD on 03/15/2024 at 12:19 CTA - brain/neck: Radiologist's Impression: Close Head/Neck CTA (Signed) Zainab Gutierrez - 03/15/24 Chest X-Ray (Signed) Tamara Simeon - 03/15/[address] (Signed) Zainab Gutierrez - 03/15/24 Launch?Image [address] [address] [address] Scan Report Signed Patient: Xiomy Dixon MR#: [id number] : 1960 Acct:[id number] Age/Sex: 63 / F Date of Service: 03/15/24 Loc: ED Accession Number: [id number] Procedure: CT angio head and neck Ordering Provider: Justice Mehta MD PROCEDURE: CT ANGIO HEAD AND NECK INDICATIONS: r/o stroke, vision changes x one week, worse in the last TECHNIQUE: After the administration of intravenous contrast, 1 mm thick sections acquired from the aortic arch through the [place] of [place]. 3-dimensional lktqowa-rskjjjasi-djfokmdyqy (MIP) and/or volume rendering reformats were acquired of the central intracranial vasculature and neck separately. For radiation dose reduction, the following was used: automated exposure control, adjustment of mA and/or kV according to patient size. COMPARISON: [facility], CT, CT HEAD/BRAIN WO CON, 03/15/2024, 11:45. CT head March 15, 2024. . FINDINGS: Image quality: Diagnostic. . HEAD CT ANGIOGRAPHY: Anterior circulation: Intracranial internal carotid arteries are normal in size and flow. The flow within the paired anterior cerebral arteries is normal and symmetric. The flow within the middle cerebral arteries is normal and symmetric. The anterior communicating artery is seen. No aneurysms are seen. Posterior circulation: Visualized portions of the vertebral arteries demonstrate normal caliber, and join to form a normal appearing basilar artery. Flow within the posterior cerebral arteries is normal and symmetric. Left posterior cerebral artery has a origin. No aneurysms are seen. NECK CT ANGIOGRAPHY: Carotid system: The great vessels demonstrate a conventional anatomy as they arise from the aortic arch. The origins of the common carotid arteries appear patent. The common carotid arteries demonstrate normal caliber and courses. The bifurcation regions are both widely patent. The internal carotid arteries demonstrate normal calibers and courses. Posterior circulation: The origins of the vertebral arteries both appear widely patent. The more superior extracranial portions of both vertebral arteries also demonstrate normal courses and calibers. They join to form a normal appearing basilar artery. Soft tissues: Visualized neck soft tissues demonstrate no suspicious abnormalities. Thyroid nodules with largest nodule in the right lobe measuring 2.0 centimeters in maximum diameter. Bones: No suspicious bony lesions. Visualized cervical spine appears normally aligned. Spine degenerative disc disease and facet arthropathy. IMPRESSION: No large vessel occlusion, significant vascular stenosis, vascular dissection or aneurysm. 2.0 centimeter right thyroid nodule. Recommend nonemergent thyroid ultrasound for additional evaluation. Any quantitative measurements of stenosis were performed using NASCET criteria. Dictated by: Zainab Gutierrez MD, PhD on 03/15/2024 at 12:07 Approved by: Zainab Gutierrez MD, PhD on 03/15/2024 at 12:13 MRI Brain: Radiologist's Impression: [address] [address] Magnetic Resonance Report Signed Patient: Xiomy Dixon MR#: [id number] : 1960 Acct:[id number] Age/Sex: 63 / F Date of Service: 03/15/24 Loc: ED Accession Number: [id number] Procedure: MR head/brain wo con Ordering Provider: Justice Mehta MD PROCEDURE: MR HEAD/BRAIN WO CON INDICATIONS: Visual disturbance/few days, CT head negative, CT angio head TECHNIQUE: Noncontrast axial T1 spin echo, axial T2 fast spin echo, sagittal and axial FLAIR, coronal T2 fast spin echo, axial gradient echo, axial diffusion and ADC through the brain. COMPARISON: [facility], CT, CT ANGIO HEAD AND NECK, 03/15/2024, 11:45. FINDINGS: Image quality: Excellent. CSF Spaces: Basal cisterns are patent. No extra-axial fluid collections. Ventricles are normal in size and shape. Brain: No intracranial masses or hemorrhage. Garcia/white matter interface is normal. Brainstem appears normal. Diffusion-weighted images demonstrate no acute infarct. No chronic ischemic insults. Normal intravascular flow voids are present. Skull and face: Calvarium has normal marrow signal. Orbits appear normal. Sinuses: Sinuses and mastoids are clear. IMPRESSION: 1. No acute intracranial process. Dictated by: Tamara Simeon M.D. on 03/15/2024 at 15:08 Approved by: Tamara Simeon M.D. on 03/15/2024 at 15:11 ECG Data Attestation: I personally reviewed and interpreted this ECG as follows: Interpretation: Normal sinus rhythm with rate 87, no obvious ST segment elevation or depression changes. CA 208, QRS 92, QTC 423. MDM Narrative Medical decision making narrative: 63-year-old with few days duration visual disturbance, noted with reading, no recent change prescription eyeglasses, no specific headache or nausea. Nonfocal neuro exam. Unremarkable visual assessment. Possible stroke, possible primary ocular/ophthalmology problem, possible atypical ophthalmic migraine, versus other. EKG shows sinus rhythm. Labs pending. Labs screening unremarkable. CT head noncontrast study negative, see radiology report. CT head/neck angiogram study negative, see radiology report. MRI brain noncontrast study ordered 1400, still awaiting MRI study, though likely can be done this afternoon. MRI Brain also done, no acute changes, see radiology report. For now advised to take aspirin daily, follow-up tomorrow with eye clinic, contact info given for solar installation technician Dr Cannon. Home with Discharge Plan Departure Patient Disposition: Home Clinical Impression: Visual disturbance, Thyroid nodule Activity Restrictions/Additional Instructions: Visual disturbance recent days, especially with reading, no prescription change with reading glasses. No history of known stroke. CT head negative. CT angiogram head and neck vessels negative. MRI brain also negative. No acute changes or thrombosis or vascular narrowing was identified with any this study so far. It is possible you might have had a recent event, stroke or otherwise that could account for the symptoms, but there is no objective imaging confirmation this at this time. It is also possible that you have some primary ocular ophthalmic problem accounting for the visual changes. Follow up with Ophthalmology advised for definitive further screening. Consider use of baby aspirin daily for now. Contact your solar installation technician, or local solar installation technician contact information provided Dr. Cannon, for close follow up appointment. Return earlier to this/nearest emergency department for any change worsening symptoms or any concerns prior Prescriptions: No Action sucralfate 100 mg/mL suspension 10 ml PO QID Qty: 420 0RF Rx Instructions: swish in mouth and swallow; use after food/drink ranitidine HCl 150 mg capsule 150 mg PO BID Qty: 60 0RF Referrals: Vera Cannon MD [Physician] - Nathaniel Garcia DO [Primary Care Provider] - Stand Alone Forms: Patient Portal/API
[2024-03-15 12:04] LABS: INR 1.2 (0.9-1.3); Prothrombin Time 13.2 SECONDS (9.4-12.5)
[2024-03-15 12:07] LABS: Alanine Aminotransferase 208 IU/L (<35); Albumin 3.8 g/dL (3.5-5.0); Albumin Globulin Ratio 1.2 (1.0-2.8); Alkaline Phosphatase 114 U/L (38-126); Aspartate Aminotransferase 71 IU/L (14-36); BUN Creatinine Ratio 27.8 (6-22); Bilirubin Total 0.7 mg/dL (0.2-1.3); Blood Urea Nitrogen 22 mg/dL (7-17); Carbon Dioxide 23 mmol/L (22-32); Chloride 103 mmol/L (98-107); Creatine Kinase 45 U/L (30-135); Estimated Glomerular Filt Rate > 60 mL/min (>60); Globulin 3.2 g/dL (1.7-4.1); Glucose 92 mg/dL (80-110); HEMOLYSIS < 15 (0-50); PTT Partial Thromboplastin Tim 34 SECONDS (25.1-36.5); Potassium 3.7 mmol/L (3.4-5.1); Sodium 135 mmol/L (137-145)
[2024-03-15 12:19] LABS: Troponin I < 0.012 ng/mL (0.01-0.034)
[2024-03-15 12:37] LABS: Bacteria Urine None Seen; Culture Indicated Urine Cult Not Indicated; RBC Urine None Seen (0-5/HPF); Squamous Epithelial Cell Urine None Seen (0-5/HPF); Urine Volume 10mL (spun); WBC Urine 0-1/HPF (0-5/HPF)
--- NOTE | 2024-03-15 12:43 | DI.MRI.S_ITS ---
PROCEDURE: MR HEAD/BRAIN WO CON INDICATIONS: Visual disturbance/few days, CT head negative, CT angio head TECHNIQUE: Noncontrast axial T1 spin echo, axial T2 fast spin echo, sagittal and axial FLAIR, coronal T2 fast spin echo, axial gradient echo, axial diffusion and ADC through the brain. COMPARISON: [facility], CT, CT ANGIO HEAD AND NECK, 03/15/2024, 11:45. FINDINGS: Image quality: Excellent. CSF Spaces: Basal cisterns are patent. No extra-axial fluid collections. Ventricles are normal in size and shape. Brain: No intracranial masses or hemorrhage. Garcia/white matter interface is normal. Brainstem appears normal. Diffusion-weighted images demonstrate no acute infarct. No chronic ischemic insults. Normal intravascular flow voids are present. Skull and face: Calvarium has normal marrow signal. Orbits appear normal. Sinuses: Sinuses and mastoids are clear. IMPRESSION: 1. No acute intracranial process. Dictated by: Tamara Simeon M.D. on 03/15/2024 at 15:08 Approved by: Tamara Simeon M.D. on 03/15/2024 at 15:11
[2024-03-15 13:59] LABS: Troponin I < 0.012 ng/mL (0.01-0.034)
== END 2024-03-15 15:40 | disposition home or self-care (01) ==
PROVIDERS: Emergency Provider Emergency Medicine; Family Provider Family Medicine; PCP Family Medicine
DX: H53.9 Unspecified visual disturbance (principal); E04.1 Nontoxic single thyroid nodule
CPT/HCPCS: 36415; 70450; 70496; 70498; 70551; 71045; 80053; 80305; 81003; 81015; 82550; 83735; 84484; 85025; 85610; 85730; 93005; 93010; 99285; Q9967